=== PATIENT | female | born 1990 | race Caucasian/White ===

== ENCOUNTER 2018-09-26 10:55 | Emergency (ER) | payer MEDICAID ==
[2018-09-26 10:56] VITALS: BMI 35.0
[2018-09-26 10:58] VITALS: TEMP 98.1; O2SAT 99
--- NOTE | 2018-09-26 12:30 | ED PDOC ---
HPI: Abdomen Time Seen by Provider: 09/26/18 11:51 Chief Complaint (Nursing): Abdominal Pain Chief Complaint (Provider): Abdominal pain History Per: Patient History/Exam Limitations: no limitations Onset/Duration Of Symptoms: Days (5) Outside of [place] travel?: No Current Symptoms Are (Timing): Still Present Location Of Pain/Discomfort: LLQ Additional History Per: Patient Additional Complaint(s): 28yo female, A1, comes to ER reporting lower abdominal pain x 5 days with associated nausea and vomiting. Patient denies any vomiting episodes today and states the abdominal pain is intermittent and present in her left lower quadrant. Otherwise, no fever, chills, back pain, hematuria, vaginal bleeding. Patient states her LMP was on 08/07 and the menstrual period she had in August had minimal blood, which was abnormal for her. Patient unsure if she is . PMD: None Abnormal Vaginal Bleeding: No Last Menstral Period: 08/07; abnormal menstral period in August : 2 Para: 1 Miscarriage: 1 Past Medical History Reviewed: Historical Data, Nursing Documentation, Vital Signs Vital Signs: Last Vital Signs Temp 98.1 F 09/26/18 10:57 Pulse 93 H 09/26/18 10:57 Resp 18 09/26/18 10:57 BP 143/88 09/26/18 10:57 Pulse Ox 99 09/26/18 10:57 - Medical History PMH: No Chronic Diseases - Surgical History Surgical History: Appendectomy - Family History Family History: States: No Known Family Hx - Allergies Allergies/Adverse Reactions: Allergies Allergy/AdvReac Type Severity Reaction Status Date / Time No Known Allergies Allergy Verified 09/26/18 11:47 Review of Systems ROS Statement: Except As Marked, All Systems Reviewed And Found Negative Constitutional: Negative for: Fever, Chills Gastrointestinal: Positive for: Vomiting, Abdominal Pain Genitourinary Female: Negative for: Dysuria, Frequency, Hematuria Musculoskeletal: Negative for: Back Pain Physical Exam - Reviewed Nursing Documentation Reviewed: Yes Vital Signs Reviewed: Yes - Physical Exam Appears: Positive for: Non-toxic, No Acute Distress Head Exam: Positive for: ATRAUMATIC, NORMAL INSPECTION, NORMOCEPHALIC Skin: Positive for: Normal Color Eye Exam: Positive for: EOMI, PERRL Neck: Positive for: Supple Cardiovascular/Chest: Positive for: Regular Rate, Rhythm Respiratory: Positive for: Normal Breath Sounds. Negative for: Respiratory Distress Gastrointestinal/Abdominal: Positive for: Soft, Tenderness (minimal left lower quadrant tenderness). Negative for: Mass, Guarding, Rebound Back: Positive for: Normal Inspection. Negative for: L CVA Tenderness, R CVA Tenderness Extremity: Positive for: Normal ROM. Negative for: Pedal Edema, Deformity Neurological/Psych: Positive for: Alert, Oriented (x 3) - Laboratory Results Result Diagrams: 09/26/18 12:45 09/26/18 12:45 - ECG O2 Sat by Pulse Oximetry: 99 (RA) Pulse Ox Interpretation: Normal - Progress Re-evaluation Time: 15:37 Condition: Re-examined, Improved Medical Decision Making Medical Decision Making: Impression: Left lower quadrant pain Differential: Ectopic , miscarriage, r/o UTI Plan: -- Upreg -- Udip -- Labs 1232 UDip negative for UTI +, patient notified. US OB ordered. 1538 US OB FINDINGS: Cardiac activity: Present Rate: 125 BPM Measurements: [place] rump length: 0.64 cm Gestational age based on CRL 6 weeks 3 days Gestational age 6 weeks 6 days based on gestational sac measurement 2.19 cm Gestational age derived from LMP: 7 weeks 1 day KARINA based on LMP: 05/14/2019 KARINA based on biometry: 05/17/2019 Gestational concordance documented Yolk sac identified Cervix: No Cervical abnormalities: Negative examination for cervical dilatation or effacement. Closed cervix measuring 3.97 cm Subchorionic hemorrhage: None UTERUS: 6.5 x 7.4 x 10.6 cm. ADNEXA: Right: 2.1 x 3.4 x 3.5 cm. Normal Doppler arterial waveform documented. Left: Not visible. Fluid in the cul-de-sac: None IMPRESSION: 6 weeks 5 days live intrauterine gestation. Gestational concordance documented. Patient informed of US findings, and instructed to follow up with OBGYN. Return precautions given. Stable for discharge home. Scribe Attestation: Documented by Jayshree Matias acting as a scribe for Kane Meraz MD. Provider Attestation: All medical record entries made by the Scribe were at my direction and persona lly dictated by me. I have reviewed the chart and agree that the record accurately reflects my personal performance of the history, physical exam, medical decision making, and the department course for this patient. I have also personally directed, reviewed, and agree with the discharge instructions and disposition. Disposition - Clinical Impression Clinical Impression: Abdominal pain during , Threatened - Patient ED Disposition Is Patient to be Admitted: No Doctor Will See Patient In The: Office Counseled Patient/Family Regarding: Studies Performed, Diagnosis, Need For Followup - Disposition Referrals: [facility] [Outside] Disposition: Routine/Home Disposition Time: 15:38 Condition: GOOD Additional Instructions: NATE NICOLAS, thank you for letting us take care of you today. Your provider was Kane Meraz MD and you were treated for LOWER ABD PAIN. The emergency medical care you received today was directed at your acute symptoms. If you were prescribed any medication, please fill it and take as directed. It may take several days for your symptoms to resolve. Return to the Emergency Department if your symptoms worsen, do not improve, or if you have any other problems. Please contact your doctor or call one of the physicians/clinics you have been referred to that are listed on the Patient Visit Information form that is included in your discharge packet. Bring any paperwork you were given at discharge with you along with any medications you are taking to your follow up visit. Our treatment cannot replace ongoing medical care by a primary care provider outside of the emergency department. Thank you for allowing the [email or web address] team to be part of your care today. If you had an X-Ray or CT scan: A Radiologist will review the ED reading if any change in treatment is needed we will contact you. If you had a blood, urine, or wound culture: It will take several days for the results, if any change in treatment is needed we will contact you. If you had an STI test: It will take 48 hours for the results. Please call after 1 week if you have not heard back. Instructions: Threatened Miscarriage Forms: [employer] (Maltese) Print Language: COMORAN
[2018-09-26 13:01] LABS: BASO % 0.3 % (0.0-2.0); EOS % 0.1 % (0.0-4.0); HEMOGLOBIN 11.5 g/dL (12.0-16.0); LYMPH # 2.3 K/uL (1.0-4.3); LYMPH % 26.7 % (20.0-40.0); MEAN CELL VOLUME 78.6 fl (81.0-99.0); MEAN CORPUSCULAR HEMOGLOBIN 25.2 pg (27.0-31.0); MEAN CORPUSCULAR HGB CONC 32.1 g/dL (33.0-37.0); MEAN PLATELET VOLUME 10.1 fl (7.2-11.7); MONO # 0.4 K/uL (0.0-0.8); MONO % 4.5 % (0.0-10.0); NEUT # 5.9 K/uL (1.8-7.0); NEUT % 68.4 % (50.0-75.0); NRBC % 0.1 % (0.0-0.0); RBC 4.54 Mil/uL (3.80-5.20); RED CELL DISTRIBUTION WIDTH 15.7 % (11.5-14.5); WHITE BLOOD COUNT 8.6 K/uL (4.8-10.8)
[2018-09-26 13:11] LABS: BLOOD UREA NITROGEN 8 mg/dl (7-17); CALCIUM 9.8 mg/dL (8.4-10.2); GFR NON-AFRICAN AMERICAN > 60
--- NOTE | 2018-09-26 15:23 | US ---
Date of service: 09/26/2018 PROCEDURE: First trimester ultrasound HISTORY: ABDOMINAL PAIN COMPARISON: None TECHNIQUE: Standard protocol for this study/examination. FINDINGS: LMP: 08/07/2018 Prior examinations from the current : None TECHNIQUE: Real-time 2D imaging, duplex and color Doppler. FINDINGS: Cardiac activity: Present Rate: 125 BPM Measurements: [place] rump length: 0.64 cm Gestational age based on CRL 6 weeks 3 days Gestational age 6 weeks 6 days based on gestational sac measurement 2.19 cm Gestational age derived from LMP: 7 weeks 1 day KARINA based on LMP: 05/14/2019 KARINA based on biometry: 05/17/2019 Gestational concordance documented Yolk sac identified Cervix: No Cervical abnormalities: Negative examination for cervical dilatation or effacement. Closed cervix measuring 3.97 cm Subchorionic hemorrhage: None UTERUS: 6.5 x 7.4 x 10.6 cm. ADNEXA: Right: 2.1 x 3.4 x 3.5 cm. Normal Doppler arterial waveform documented. Left: Not visible. Fluid in the cul-de-sac: None IMPRESSION: 6 weeks 5 days live intrauterine gestation. Gestational concordance documented.
[2018-09-26 15:51] VITALS: BP 111/73; PULSE 90; RESP 16
== END 2018-09-26 15:54 | disposition home or self-care (01) ==
LOC: SUPCPDRO 10:55 → H.ER 10:55
DX: O26.91 Pregnancy related conditions, unspecified, first trimester (principal); R10.2 Pelvic and perineal pain; O20.0 Threatened abortion; Z3A.01 Less than 8 weeks gestation of pregnancy

== ENCOUNTER 2018-11-30 21:58 | Emergency (ER) | payer MEDICAID, OTHER ==
--- NOTE | 2018-11-30 23:11 | OBHP ---
Datetime: 11/30/2018 22:13 IP Adm Impression: , intrauterine IP Chief Complaint Other: abd pain IP Admit Plan: Discharge home Admit Comment, IP Provider: 28 y/o female at 16.2 wk GA presents to [facility] w/ c/o intermittent left lower abdominal pain that began yesterday morning, 3/10 in severity. She reports having vaginal spotting. Denies N/V/C/D/urinary sx. She was last sexually active 2 weeks ago. OB: [facility] Obhx: 1 miscarriage, 1 section @ 38 wks in 2012 Pmhx: HTN Rx: Unknown HTN med, vitamins_ Allergies: NKDA Famhx: Mother w/ hx of HTN and DM SurgHx: appendectomy, Socialhx: denies toxic habits ROS all systems reviewed and negative except per HPI Physical Exam: Gen: no acute distress Heart: s1 s2 present, RRR Lungs: normal resp effort, clear to auscultation bilaterally Abd: soft, non-tender, normal bowel sounds Extremities: no swelling/erythema/tenderness Speculum exam (chaperoned by Nurse Leal): small amt of brown blood visible at cervical os Assessment and Plan 28 y/o female at 16.2 wk GA doppler FHR 157 BMP Speclum exam shows small amount of brown blood U/S at bedside shows IUP and movement and adequate fluid Patient stable for discharge to home w/ instructions to follow up w/ OB in 1 week Case discussed w/ attending Dr. Nathan Allen, pgyi Patient was seen with the resident I agree with the note Pelvic Type - PN: Adequate Extremities - PN: Not Done Abdomen - PN: Normal Back - PN: Normal Breast - PN: Not Done Lungs - PN: Normal Heart - PN: Normal Thyroid - PN: Not Done Neurologic - PN: Not Done HEENT - PN: Not Done General - PN: Normal FHR - Baseline A Provider: [id number] Contraction Comments Provider: none Gestation - Est Wks by US: 16.2 Vital Signs Provider: Reviewed; Within Normal Limits IP Chief Complaint: Other Genitourinary Exam: Not Done DTRs - PN: Not Done
[2018-12-01 05:00] VITALS: BP 124/77; PULSE 108; RESP 18; TEMP 98.3; O2SAT 99
== END 2018-11-30 23:05 | disposition home or self-care (01) ==
LOC: H.EROB2 21:58
DX: O26.92 Pregnancy related conditions, unspecified, second trimester (principal); R10.2 Pelvic and perineal pain; O26.852 Spotting complicating pregnancy, second trimester; Z3A.16 16 weeks gestation of pregnancy; Z87.59 Personal history of other complications of pregnancy, childbirth and the puerperium